=== PATIENT | female | born 1990 | race Caucasian/White ===

== ENCOUNTER 2019-07-21 12:02 | Emergency (ER) | payer OTHER ==
[~2019-07-21] VITALS: Ht 170.2 cm; Wt 60.3 kg
[2019-07-21] MEDS ORDERED: IV NORMAL SALINE 1000 ML BAG IV ONE (13:00)
[2019-07-21] MEDS ORDERED: KETOROLAC TROMETHAMINE 30 MG INJ IVP ONE (13:00)
[2019-07-21] MEDS ORDERED: KETOROLAC TROMETHAMINE 30 MG INJ ONE (13:03)
[2019-07-21 13:09] LABS: BASOPHILS # (AUTO) 0.1 K/uL (0.0-8.0); BASOPHILS % (AUTO) 0.9 % (0.0-2.0); EOSINOPHILS # (AUTO) 0.3 K/uL (0.0-0.7); EOSINOPHILS % (AUTO) 3.2 % (0.0-7.0); HEMATOCRIT 39.2 % (31.2-41.9); HEMOGLOBIN 13.1 g/dL (10.9-14.3); LYMPHOCYTES # (AUTO) 1.8 K/uL (20.0-40.0); LYMPHOCYTES % (AUTO) 19.4 % (20.5-51.5); MEAN CORPUSCULAR HEMOGLOBIN 31.9 uug (24.7-32.8); MEAN CORPUSCULAR HGB CONC 33 g/dL (32.3-35.6); MEAN CORPUSCULAR VOLUME 95.7 fL (75.5-95.3); MONOCYTES # (AUTO) 0.9 K/uL (2.0-10.0); MONOCYTES % (AUTO) 9.9 % (0.0-11.0); NEUTROPHILS # (AUTO) 6.3 K/uL (1.8-8.9); NEUTROPHILS % (AUTO) 66.6 % (38.5-71.5); PLATELET COUNT (AUTO) 266 K/uL (179-408); WHITE BLOOD COUNT (AUTO) 9.5 K/uL (3.8-11.8)
[2019-07-21 13:16] LABS: CARBON DIOXIDE 25 mmol/L (21-32); CHLORIDE 104 mmol/L (98-107); CREATININE 0.9 mg/dL (0.6-1.3); GLUCOSE 89 mg/dL (74-106); POTASSIUM 3.8 mmol/L (3.5-5.1); UREA NITROGEN, BLOOD 17 mg/dL (7-18)
[2019-07-21 13:22] LABS: ALANINE AMINOTRANSFERASE 21 U/L (14-59); ALKALINE PHOSPHATASE 58 U/L (50-136); ASPARTATE AMINOTRANSFERASE 16 U/L (15-37); BILIRUBIN,TOTAL 0.4 mg/dL (0.2-1.0); TOTAL PROTEIN, SERUM 8.4 g/dL (6.4-8.2)
[2019-07-21 13:24] LABS: BILIRUBIN,DIRECT < 0.1 mg/dL (0.0-0.2)
[2019-07-21 14:45] LABS: *BILIRUBIN,URIN NEGATIVE (NEGATIVE); *BLOOD, URINE NEGATIVE (NEGATIVE); *CLARITY,URINE CLEAR (CLEAR); *COLOR,URINE YELLOW (YELLOW); *KETONES,URINE NEGATIVE (NEGATIVE); *UROBILINOGEN,URINE 0.2 E.U./dl (NORMAL); LEUKOCYTE ESTERASE ,URINE 1+ (NEGATIVE); NITRITE, URINE NEGATIVE (NEGATIVE); PH,URINE 6.5 (5.0-8.0); UGLUCOSE NEGATIVE (NEGATIVE)
[2019-07-21] MEDS ORDERED: HYDROCODONE/APAP 5-325MG TABLET PO ONE (14:45)
[2019-07-21 14:51] LABS: *URINE HCG, QUAL NEGATIVE (NEGATIVE); BACTERIA,URINE FEW /HPF (NONE SEEN); RBC,URINE NONE SEEN /HPF (0-3); SQUAMOUS EPITHELIAL CELL,UR FEW /HPF (NONE SEEN); WBC,URINE 0-3 /HPF (0-3)
[2019-07-21] MEDS ORDERED: HYDROCODONE/APAP 5-325MG TABLET ONE (14:54)
--- NOTE | 2019-07-21 17:03 | NUR ---
Patient discharged to home in stable conditon. Written and verbal after care instructions given. Patient verbalizes understanding of instructions.pt walks in steady gait. pt stsates that her right flank pain has improved to toleralable level of 5/10.
[2019-07-21 17:06] VITALS: BP 121/45
== END 2019-07-21 17:13 | disposition home or self-care (01) ==
LOC: ER 12:02
DX: R10.9 Unspecified abdominal pain (principal); R07.81 Pleurodynia; M34.9 Systemic sclerosis, unspecified; J45.909 Unspecified asthma, uncomplicated; Z60.2 Problems related to living alone
CPT/HCPCS: 36415; 71045; 71250; 74176; 80048; 80076; 81000; 81001; 84443; 84703; 85025; 85379; 87086; 93005; 96374; 99285; J1885; A4663